=== PATIENT | male | born 1945 | race Caucasian/White ===

== ENCOUNTER → 2016-09-25 | Outpatient (CLI) | payer BC ==
[~2016-09-25] MED LIST: ASPIRIN E.C. 8181 MG PO; CALCIUM + D 6001 TA1 PO; CRANBERRY1 CAP PO; HCTZ/LISINOPRIL1 TA1 PO; LIPITOR80 MG PO; METFORMIN1000 MG PO; OMEGA-3 1000 MG1 CAP PO
== END ==
LOC: COL.RAD 12:19
DX: M25.411 Effusion, right shoulder (principal); M25.811 Other specified joint disorders, right shoulder; S43.491A Other sprain of right shoulder joint, initial encounter

== ENCOUNTER → 2016-09-28 | Outpatient (CLI) | payer BC ==
[2016-09-28 12:15] LABS: HEMATOCRIT 39.2 % (42.0-52.0); HEMOGLOBIN 12.9 g/dl (13.5-18.0); MEAN CELL VOLUME 89 fl (80.0-100.0); MEAN CORPUSCULAR HEMOGLOBIN 29 pg (27.0-31.0); MEAN CORPUSCULAR HGB CONC 33 g/dl (33.0-37.0); MEAN PLATELET VOLUME 8.9 fl (7.4-10.4); PLATELET COUNT 325 K/mm3 (130-400); RED BLOOD COUNT 4.42 M/mm3 (4.20-5.60); REDCELL DISTRIBUTION WIDTH-CV 14.9 % (11.5-14.5); WHITE BLOOD COUNT 7.4 K/mm3 (4.8-10.8)
[2016-09-28 12:56] LABS: ERYTHROCYTE SEDIMENTATION RATE 14 mm/hr (0-30)
== END ==
LOC: COL.LAB 11:14
PROVIDERS: Orthopaedic Surgery
DX: M79.89 Other specified soft tissue disorders (principal)

== ENCOUNTER → 2016-10-05 | Outpatient (CLI) | payer BC ==
[2016-10-05 12:47] LABS: SYNOVIAL FL. MONONUCLEAR 41.3 % (0-75); SYNOVIAL FL. POLYMORPHONUCLEAR 58.7 % (0-25); SYNOVIAL FLUID RBC 103000 /mm3 (0-0); SYNOVIAL FLUID WBC 92 /mm3 (200-600)
[2016-10-05 14:24] LABS: SYNOVIAL FLUID APPEARANCE CLOUDY; SYNOVIAL FLUID COLOR RED
== END ==
LOC: COL.RAD 07:54
PROVIDERS: Orthopaedic Surgery
DX: M25.411 Effusion, right shoulder (principal); Z98.890 Other specified postprocedural states

== ENCOUNTER → 2019-03-28 | Outpatient (CLI) | payer BC | LOC: COL.RAD 13:16 | DX: Z01.812 Encounter for preprocedural laboratory examination (principal); R31.9 Hematuria, unspecified; N32.89 Other specified disorders of bladder; Z98.890 Other specified postprocedural states | CPT/HCPCS: Q9967 ==

== ENCOUNTER 2021-09-25 09:42 | Inpatient (IN) | payer OTHER, MEDICARE ==
[~2021-09-25] VITALS: Ht 180.3 cm; Wt 98.6 kg
[2021-09-25 10:05] LABS: BASO % 0.5 % (0.0-2.0); EOS # 0.1 K/mm3 (0.0-0.7); EOS % 0.7 % (0.0-4.0); GRAN # 6.4 K/mm3 (1.4-6.5); GRAN % 85.4 % (42.2-75.2); HEMATOCRIT 43.6 % (42.0-52.0); HEMOGLOBIN 15.2 g/dl (13.5-18.0); LYMPH # 0.4 K/mm3 (1.2-3.4); LYMPH % 5.9 % (20.0-51.0); MEAN CELL VOLUME 93 fl (80.0-100.0); MEAN CORPUSCULAR HEMOGLOBIN 33 pg (27-31); MEAN CORPUSCULAR HGB CONC 35 g/dl (33.0-37.0); MEAN PLATELET VOLUME 9.2 fl (7.4-10.4); MONO # 0.5 K/mm3 (0.1-0.6); MONO % 7.1 % (1.7-9.3); PLATELET COUNT 145 K/mm3 (130-400); RED BLOOD COUNT 4.67 M/mm3 (4.20-5.60); REDCELL DISTRIBUTION WIDTH-CV 13.8 % (11.5-14.5)
[2021-09-25 10:20] LABS: ALBUMIN 3.5 gm/dL (3.4-4.8); BILIRUBIN,TOTAL 2.3 mg/dL (0.2-1.2); CALCIUM 8.5 mg/dL (8.4-10.2); CREATININE, serum 0.95 mg/dL (0.72-1.25); POTASSIUM 3.3 mmol/L (3.5-4.5); TOTAL PROTEIN 6.7 gm/dL (6.2-8.1)
[2021-09-25 10:26] LABS: TROPONIN-I 0.03 ng/mL (0.00-0.033)
[2021-09-25 11:31] LABS: COLLECTION METHOD CLEAN CATCH
[2021-09-25 11:39] LABS: MUCOUS Present (NOT PRESENT); PH 5 (5-8); SQUAMOUS EPITHELIAL 0-2 /hpf (0-10); URINE APPEARANCE Hazy (CLEAR/HAZY); URINE BACTERIA None Seen /hpf (NONE SEEN); URINE BILIRUBIN Negative (NEGATIVE); URINE BLOOD 2+ (NEGATIVE); URINE COLOR Yellow (YELLOW); URINE GLUCOSE Negative (NEGATIVE); URINE KETONE 1+ (NEGATIVE); URINE LEUKOCYTE ESTERASE Negative (NEGATIVE); URINE NITRATE Negative (NEGATIVE); URINE PROTEIN(semi-quant) 1+ (NEGATIVE)
--- NOTE | 2021-09-25 14:22 | NUR ---
PT ARRIVED TO UNIT. ADMISSION INTAKE AND ASSESSMENT COMPLETED. PT RESTING IN BED WITH FAMILY AT BEDSIDE. ORIENTED PT TO ROOM. PT DENIES ANY NEEDS AT THIS TIME. CURRENTLY ON 2L VIA NC. WILL CONTINUE TO MONITOR.
[2021-09-25] MEDS ORDERED: NORVASC 5MG5 MG/TAB PO (14:26)
[2021-09-25] MEDS ORDERED: LIPITOR 80MG80 MG PO (14:27)
[2021-09-25] MEDS ORDERED: PRINZIDE 12.5 M1 TA1 PO (14:27)
[2021-09-25] MEDS ORDERED: TOVIAZ8 MG PO (14:28)
[2021-09-25] MEDS ORDERED: GLUCOPHAGE500 MG/TAB PO (14:29)
[2021-09-25] MEDS ORDERED: AMOXICILLIN 8751 TAB PO (14:29)
[2021-09-25 15:59] LABS: BILIRUBIN,DIRECT 0.9 mg/dL (0.0-0.5)
[2021-09-25 16:00] VITALS: BP 140/63; PULSE 65; TEMP 100.1
[2021-09-25 16:31] LABS: C-REACTIVE PROTEIN 6.52 mg/dL (0.00-0.50); PHOSPHOROUS 3.1 mg/dL (2.3-4.7)
[2021-09-25 16:51] LABS: THYROID STIMULATING HORMONE 1.975 uIU/mL (0.350-4.940)
[2021-09-25 17:08] LABS: ARTERIAL BLD GAS O2 SATURATION 95.6 % (92-100); ARTERIAL BLOOD GAS PCO2 33.5 mmHg (35-45); ARTERIAL BLOOD GAS PO2 76.9 mmHg (80-100); ARTERIAL BLOOD GAS pH 7.47 (7.35-7.45)
[2021-09-25 20:05] VITALS: BP 125/68; PULSE 82; TEMP 98.8
--- NOTE | 2021-09-25 22:07 | NUR ---
Patient assessed around 2014. Patient awake, alert and oriented x 4. Answering all questions appropriately, and following all directions. Denies having pain and discomfort. Patient's only complaint is that he is feeling cold. LS CTA in upper lobes, diminished in lower. HRR, telemetry in place. Patient voices no questions, needs, or concerns at this time. In bed with call light within reach. Bed alarm on. at bedside.
[2021-09-25 23:58] VITALS: BP 113/62; PULSE 65; TEMP 98.1
[2021-09-26] VITALS (10 sets, daily range): BP systolic 113–147; BP diastolic 56–109; PULSE 68–147; TEMP 97.8–102.8
[2021-09-26 01:05] LABS: PROCALCITONIN 0.3 ng/mL (0.00-0.09)
[2021-09-26 02:43] LABS: OSMOLALITY-URINE random 892 Osm/kg (50-1200)
--- NOTE | 2021-09-26 05:05 | NUR ---
Patient has denied pain and discomfort this shift. Continues on oxygen at 5 L/min via NC. IV fluids and ABX continue per orders. Neuro checks WNL for patient: alert and oriented x 4, no slurred speech or difficulty speaking noted, able to lift and hold both arms and legs without difficulty. Has been using urinal in bed with assistance. Post void residual had been 250 after first void, then 125 after second void during the night. Has been NPO per orders, but did take medications with thin fluids, and no choking/coughing noted afterwards. remains at bedside. Patient in bed with call light within reach. Bed alarm on.
[2021-09-26 07:18] LABS: MEAN CELL VOLUME 96 fl (80.0-100.0); MEAN CORPUSCULAR HEMOGLOBIN 33 pg (27-31); MEAN CORPUSCULAR HGB CONC 34 g/dl (33.0-37.0); PLATELET COUNT 124 K/mm3 (130-400); RED BLOOD COUNT 4.06 M/mm3 (4.20-5.60)
[2021-09-26 07:23] LABS: ALBUMIN 2.9 gm/dL (3.4-4.8); BILIRUBIN,TOTAL 1.9 mg/dL (0.2-1.2); CALCIUM 7.8 mg/dL (8.4-10.2); CHOLESTEROL RISK RATIO 3.4; CREATININE, serum 0.72 mg/dL (0.72-1.25); MAGNESIUM 1.9 mg/dL (1.6-2.6); POTASSIUM 3.6 mmol/L (3.5-4.5); TOTAL PROTEIN 5.8 gm/dL (6.2-8.1)
[2021-09-26 07:28] LABS: HEMOGLOBIN 13.2 g/dl (13.5-18.0)
--- NOTE | 2021-09-26 10:44 | NUR ---
Cut Order Hand met with patient to discuss discharge planning. Patient's daughter, Delma (ph#[phone]) is at bedside. Patient lives in [place] with his , Johana (ph#[phone]) and sees Dr. Allen for primary care. Patient obtains medications from [facility] with no difficulties and does not normally use any DME. Patient does not normally use oxygen, but is currently requiring it. Patient is normally independent with ADLS and plans to return home at time of discharge. PT/OT recommend return home. Patient reports he believes he has Advance Directives in a trust he has. Discharge Plan: Home
--- NOTE | 2021-09-26 12:57 | NUR ---
Several visit attempts; Buttoner left card offering patient God's blessings and information regarding the availability of [facility] throughout each day and Print Buyer on weekends.
[2021-09-26 13:01] LABS: CSF COLOR COLORLESS
[2021-09-26 13:02] LABS: CSF APPEARANCE CLEAR; CSF RBC 52 /mm3 (0-0)
[2021-09-26 13:13] LABS: GLUCOSE,CSF 65 mg/dL (40-70); TOTAL PROTEIN,CSF 36 mg/dL (15-45)
[2021-09-26 13:19] LABS: CSF MONONUCLEAR 100 % (70-100); CSF POLYMORPHONUCLEAR 0 % (0-6)
--- NOTE | 2021-09-26 18:19 | NUR ---
PATIENT ORIENT AND ALERT X4 , VSS, IV NORMAL SALINE UP AND RUNNING,DENIES ANY PAIN, ON 2 LTS VIA N.C.
[2021-09-26 23:55] LABS: PARTIAL THROMBOPLASTIN TIME 32.2 SECONDS (26.0-37.0)
[2021-09-27] VITALS (7 sets, daily range): BP systolic 110–123; BP diastolic 58–78; PULSE 74–113; TEMP 98.3–100.3
--- NOTE | 2021-09-27 01:03 | NUR ---
PATIENT DOING WELL POST LUMBAR PUNCTURE SITE INTACT TO LOWER BACK. DENIES ANY DIZZINESS OR HEADACHE. AROUND 2254 RECEIVED CALL FROM FUJIAN HAIYUAN STATED PATIENT HR 150'S FOUND PATIENT ON TOILET HAVING A BOWEL MOVEMENT. EKG PERFORMED PATIENT RVR/AFIB. PROVIDED CARDIZEM 10MG BOLUS IV PER PA AND TO START ON CARDIZEM DRIP. BLOOD WORK DRAWN PATIENT TO START ON HEPARIN WELL. NEXT HEPXA AROUND 0515. PATIENT DENIES ANY SOB OR CHEST PAIN. PATIENT IS DIAPHORETIC. WITHIN 15MIN PATIENT HR RESPONDING TO CARDIZEM BOLUS. WILL CONTINUE TO MONITOR FOR ANY CHANGES ASSESSING VITALS HOURLY WHILE ON DRIP. HR 103 @ 0107AM
--- NOTE | 2021-09-27 05:21 | NUR ---
PATIENT NPO AT MIDNIGHT DUE TO RECENT A-FIB RVR FOR FURTHER EVAL. WILL CONTINUE TO MONITOR PATIENT SLEEPING THROUGHOUT THE NIGHT VOIDING NEEDED WITH URINAL. NO C/O PAIN OR DISCOMFOR NOTED NO S/S OF SOB OR DISTRESS.
--- NOTE | 2021-09-27 05:50 | NUR ---
TRIED TO CALL RICARDO DAUGHTER AND UPDATE IN REGARDS OF CARDIZEM DRIP/HEPARIN AND NEW ONSET OF A-FIB RVR. PENDING CALL BACK.
--- NOTE | 2021-09-27 22:25 | NUR ---
NO ACTIVE BLEEDING NOTED PENDING VOID, PATIENT HEPARIN WAS STOPPED CARDIOLOGY TO EVALUATE IN AM. PATIENT DENIES ANY CHEST PAIN CONTINUES ON AMIODARONE ORDERED. CONTINUES TO WORK WITH PT/OT/ST. NEURO WNL NO CHAGNES NOTED WILL CONTINUE TO MONITOR FOR ANY CHANGES. PATIENT CONTINUES ON IV ABX THERAPY.
[2021-09-28] VITALS (14 sets, daily range): BP systolic 104–168; BP diastolic 58–95; PULSE 74–129; TEMP 98.1–101.6
--- NOTE | 2021-09-28 04:47 | NUR ---
INFORMED HOSPITALIST PATIENT HAVING AUDIBLE WHEEZING WITH SHORTNESS OF BREATHE AT REST. PATIENT DENIES ANY SHORTNESS OF BREATHE OR CHEST PAIN AT THIS TIME. NEW ORDERS IV FLUIDS ON HOLD AND PROVIDED 10MG OF LASIX IV, WILL CONTINUE TO MONITOR PATIENT PROGRESS. NO EDEMA NOTED AT THIS TIME. URINAL WITHIN REACH.
--- NOTE | 2021-09-28 05:08 | NUR ---
PATIET VOIDING POST LASIX, REPOSITIONED PATIENT IN BED TO ASSIST WIT SOB, PENDING CHEST X-RAY. PATIENT SWEATING AT THIS TIME FEBRILE 101.6. PROVIDED ICE PACK WELL TO ASSIST WITH FEVERY.
--- NOTE | 2021-09-28 06:04 | NUR ---
PATIENT BREATHING MUCH BETTER AUDIBLE WHEEZING NOTED BUT WITHOUT SOB AND SLIGHLTY IMPROVED. PATIENT STATED THAT HE FEELS BETTER, WHICH HE DENIED ANY SOB PRIOR. PATIENT IS NOW A-FEBRILE, RADIOLOGY AT BEDSIDE PENDING RESULTS.
[2021-09-28 06:54] LABS: HEMATOCRIT 37.7 % (42.0-52.0); HEMOGLOBIN 12.8 g/dl (13.5-18.0); MEAN CELL VOLUME 96 fl (80.0-100.0); MEAN CORPUSCULAR HEMOGLOBIN 33 pg (27-31); MEAN CORPUSCULAR HGB CONC 34 g/dl (33.0-37.0); MEAN PLATELET VOLUME 10.1 fl (7.4-10.4); PLATELET COUNT 143 K/mm3 (130-400); RED BLOOD COUNT 3.94 M/mm3 (4.20-5.60); REDCELL DISTRIBUTION WIDTH-CV 14.2 % (11.5-14.5)
[2021-09-28 07:14] LABS: CALCIUM 7.9 mg/dL (8.4-10.2); CREATININE, serum 0.66 mg/dL (0.72-1.25); MAGNESIUM 1.7 mg/dL (1.6-2.6); POTASSIUM 3.4 mmol/L (3.5-4.5)
--- NOTE | 2021-09-28 07:38 | NUR ---
Patient sitting up in bed sleeping, easily awakened with verbal command. A&Ox4. VSS. IV CDI, fluids infusing. Denies pain and discomfort. Nurse ordered breakfast. Call light within reach. Bed alarm on
[2021-09-28 10:12] LABS: BILIRUBIN,TOTAL 1.6 mg/dL (0.2-1.2)
[2021-09-28 12:36] LABS: PARTIAL THROMBOPLASTIN TIME 32.2 SECONDS (26.0-37.0)
--- NOTE | 2021-09-28 17:36 | NUR ---
Patient resting in bed most of the shift, reports that he feels tired. Family has been at the bedside. A&Ox4. VSS 2L NC O2, audible wheezing. Denies pain and discomfort. IV CDI, fluids infusing. Q1 hr VS monitored. Urinal at the bedside. Patient is waiting for a bed at [facility]. Call light within reach
--- NOTE | 2021-09-28 21:30 | NUR ---
PATIENT RESTARTED ON HEPARIN AND CARDIZEM DRIP TOLERATING WELL. PATIENT STARTED ON METOPROLOL XL 25MG. REMAINS ON TELE 116 AFIB IRREGULAR. PATIENT TO TRANSFER TO [facility] PENDING BED. NO HEMATURIA NOTED AT THIS TIME. PATIENT CONTINUES WITH [id number]. UPDATED PATIENT AND FAMILY ON PLAN OF CARE WILL NOTIFY FAMILY OF BED WHEN AVAILABLE. WILL CONTINUE TO MONITOR. PATIENT DOES HAVE SOME SHORTNESS OF BREATHE ON EXERTION BUT IMPROVED FROM LAST NIGHT AT REST. CONTINUES ON OXYGENATION 2L VIA NC.
[2021-09-29 01:42] VITALS: BP 112/93; PULSE 91
[2021-09-29 04:05] VITALS: BP 109/79; PULSE 108; TEMP 97.9
[2021-09-29 06:32] LABS: HEMOGLOBIN 12.1 g/dl (13.5-18.0); MEAN CELL VOLUME 95 fl (80.0-100.0); MEAN CORPUSCULAR HEMOGLOBIN 32 pg (27-31); MEAN CORPUSCULAR HGB CONC 34 g/dl (33.0-37.0); MEAN PLATELET VOLUME 9.9 fl (7.4-10.4); PLATELET COUNT 143 K/mm3 (130-400); RED BLOOD COUNT 3.73 M/mm3 (4.20-5.60); REDCELL DISTRIBUTION WIDTH-CV 14.4 % (11.5-14.5)
[2021-09-29 06:53] LABS: ALBUMIN 2.6 gm/dL (3.4-4.8); BILIRUBIN,TOTAL 1.8 mg/dL (0.2-1.2); C-REACTIVE PROTEIN 18.5 mg/dL (0.00-0.50); CALCIUM 8.2 mg/dL (8.4-10.2); CREATININE, serum 0.68 mg/dL (0.72-1.25); HEMATOCRIT 35.6 % (42.0-52.0); MAGNESIUM 2.2 mg/dL (1.6-2.6); POTASSIUM 3.7 mmol/L (3.5-4.5); TOTAL PROTEIN 6.1 gm/dL (6.2-8.1)
[2021-09-29 07:39] VITALS: BP 127/84; PULSE 99; TEMP 98.5
[2021-09-29 08:12] LABS: LYMPHOCYTE 22 % (20.0-51.0); NEUTROPHILS 72 % (42.0-75.2)
[2021-09-29 08:16] LABS: PLATELET ESTIMATE NORMAL (NORMAL)
--- NOTE | 2021-09-29 10:20 | NUR ---
Patient to transfer to [facility] once there is a bed available.
--- NOTE | 2021-09-29 10:39 | NUR ---
PT SITTING UP IN RECLINER. MORNING IV MEDICATIONS GIVEN, NPO FOR CARDIOVERSION AT THIS TIME. SHIFT ASSESSMENT COMPLETED. DENIES ANY PAIN OR NEEDS AT THIS TIME. HEPARIN GTT INFUSING AT 18ML/HR. CARDIZEM GTT INFUSING AT 5ML/HR. CONTINUING TO MONITOR. UPDATED FAMILY ON POC.
[2021-09-29 11:17] VITALS: BP 120/79; PULSE 121; TEMP 98.9
[2021-09-29 16:22] VITALS: BP 120/72; PULSE 94; TEMP 98.3
--- NOTE | 2021-09-29 16:56 | NUR ---
REPORT GIVEN TO RN AT [facility]. EMS ESCORTING PT DOWN ON STRETCHER, FAMILY AT BEDSIDE. WILL D/C FROM SYSTEM.
[2021-09-30 10:55] LABS: HSV 2 DNA PCR QUAL Not Detected (())
== END 2021-09-29 16:57 | disposition short-term general hospital (02) | DRG 69 ==
LOC: COL.ER 09:42 → MEDICAL 12:21
PROVIDERS: Emergency Medicine; Internal Medicine; Physician Assistant; Psychiatry & Neurology Neurology; Student in an Organized Health Care Education/Training Program; ADMIT Family Medicine
PROC: 009U3ZX Drainage of Spinal Canal, Percutaneous Approach, Diagnostic (ICD-10-PCS; principal; 2021-09-26)
PROC: 5A2204Z Restoration of Cardiac Rhythm, Single (ICD-10-PCS; 2021-09-29)
PROC: B24BZZ4 Ultrasonography of Heart with Aorta, Transesophageal (ICD-10-PCS; 2021-09-29)
DX: G45.9 Transient cerebral ischemic attack, unspecified (principal); J96.01 Acute respiratory failure with hypoxia; E87.1 Hypo-osmolality and hyponatremia; A93.8 Other specified arthropod-borne viral fevers; R47.01 Aphasia; J98.11 Atelectasis; I48.91 Unspecified atrial fibrillation; E78.5 Hyperlipidemia, unspecified; E11.9 Type 2 diabetes mellitus without complications; G47.33 Obstructive sleep apnea (adult) (pediatric); Z20.822 Contact with and (suspected) exposure to COVID-19; E87.6 Hypokalemia; E80.6 Other disorders of bilirubin metabolism; R31.9 Hematuria, unspecified; E87.70 Fluid overload, unspecified; I10 Essential (primary) hypertension; R32 Unspecified urinary incontinence; R29.810 Facial weakness; R26.9 Unspecified abnormalities of gait and mobility; R50.9 Fever, unspecified; R53.81 Other malaise; Z79.84 Long term (current) use of oral hypoglycemic drugs; Z79.82 Long term (current) use of aspirin; Z91.19 Patient's noncompliance with other medical treatment and regimen; Z99.81 Dependence on supplemental oxygen; Z85.46 Personal history of malignant neoplasm of prostate; Z92.3 Personal history of irradiation
CPT/HCPCS: 99223-AI; 99233-AI; 99239; A9284; A9575; J0282; J0696; J1644; J1815; J1940; J2250; J2543; J2704; J3010; J3370; J3475; J7030; J7050; J7060; J7120; Q9967

== ENCOUNTER 2021-10-17 02:35 | Emergency (ER) | payer OTHER ==
[~2021-10-17] VITALS: Ht 177.8 cm; Wt 90.9 kg
[~2021-10-17 02:35] MED LIST changes: +AMOXICILLIN 8751 TAB PO; +GLUCOPHAGE500 MG/TAB PO; +LIPITOR 80MG80 MG PO; +NORVASC 5MG5 MG/TAB PO; +PRINZIDE 12.5 M1 TA1 PO; +TOVIAZ8 MG PO
[2021-10-17 03:20] VITALS: TEMP 98.2
[2021-10-17 03:51] VITALS: BP 106/67; PULSE 62
== END 2021-10-17 04:00 | disposition home or self-care (01) ==
LOC: COL.ER 02:35
DX: R33.9 Retention of urine, unspecified (principal)

== ENCOUNTER 2021-10-28 07:41 | Day surgery (SDC) | payer OTHER ==
[~2021-10-28] VITALS: Ht 177.8 cm; Wt 92.0 kg
[2021-10-28] MEDS ORDERED: ASPIRIN E.C. 8181 MG PO (07:57)
[2021-10-28] MEDS ORDERED: TOPROL XL 25MG25 MG PO (07:58)
[2021-10-28] MEDS ORDERED: LIPITOR 80MG80 MG PO (07:58)
[2021-10-28] MEDS ORDERED: NORVASC 5MG5 MG/TAB PO (07:58)
[2021-10-28] MEDS ORDERED: TOVIAZ8 MG PO (07:59)
[2021-10-28] MEDS ORDERED: PRINZIDE 12.5 M1 TA1 PO (08:00)
[2021-10-28] MEDS ORDERED: GLUCOPHAGE500 MG/TAB PO (08:00)
[2021-10-28 08:31] VITALS: BP 125/67; PULSE 61; TEMP 98.1
[2021-10-28 12:05] VITALS: BP 113/70; PULSE 71; TEMP 98.2
[2021-10-28 12:17] VITALS: TEMP 98.5
[2021-10-28 12:20] VITALS: BP 149/64; PULSE 69
[2021-10-28 12:35] VITALS: BP 122/63; PULSE 69
--- NOTE | 2021-10-28 13:21 | NUR ---
1205: Patient brought back into [facility]. Daughter at bedside. Vital signs stable on 2L O2 via NC. Report received from SERA Reynolds. Patient requesting cranberry juice, water and, blueberry muffins. Patient denies nausea and pain at this time. 1220: Patient tolerated food and drink well. Denies pain or nausea. Vital signs stable on room air. 1235:Patient tolerated food and drink well. Denies pain or nausea. Vital signs stable on room air. 1255: Went through discharge instructions with patient and jerryugher. Escorted to patient entrance via wheelchair by SERA Stroud. Patient got into personal vehicle and left in the care of their daughter, Dalia.
== END 2021-10-28 13:05 | disposition home or self-care (01) ==
LOC: SDCO 07:41
DX: N32.0 Bladder-neck obstruction (principal); R33.9 Retention of urine, unspecified
CPT/HCPCS: C1769; J0690; J1100; J2405; J2704; J3010; J3301; J7120

== ENCOUNTER → 2023-06-15 | Outpatient (CLI) | payer MEDICARE, OTHER ==
[~2023-06-15] MED LIST changes: +Gadoterate 20 ML VIAL IV ONE; +TOPROL XL 25MG25 MG PO
[2023-06-15 09:30] LABS: CREATININE, serum 0.75 mg/dL (0.72-1.25)
== END ==
LOC: COL.RAD 07:29
PROVIDERS: Orthopaedic Surgery Sports Medicine
DX: M48.04 Spinal stenosis, thoracic region (principal); M48.05 Spinal stenosis, thoracolumbar region; M48.061 Spinal stenosis, lumbar region without neurogenic claudication; M51.34 Other intervertebral disc degeneration, thoracic region; M51.35 Other intervertebral disc degeneration, thoracolumbar region
CPT/HCPCS: A9575